=== PATIENT | female | born 1970 | race Hispanic/Latino ===

== ENCOUNTER 2019-05-16 10:56 | Outpatient (CLI) | payer BC ==
--- NOTE | 2019-05-17 11:35 | Mammography Report ---
DIGITAL SCREENING MAMMOGRAM WITH CAD, 05/16/2019 INDICATION: Routine screening mammography. TECHNIQUE: Digital bilateral 2D mammography was obtained in the craniocaudal and mediolateral obliq ue projections. This examination was interpreted with the benefit of Computer-Aided Detection analysi s. COMPARISON: 02/06/2016 FINDINGS: Breast Density: There are scattered areas of fibroglandular density. A right asymmetry on the MLO view requires additional imaging. No architectural distortion or suspici ous calcifications of the right breast. There is no evidence of dominant mass, suspicious calcificati ons or architectural distortion in the left breast. IMPRESSION: Right asymmetry requiring additional imaging. Recommend recall for right lateral and spot magnification MLO views and right breast ultrasound if needed. Follow up recommendation: Special View: Mag Category 0: Incomplete. Needs additional imaging evaluation and/or prior mammograms for comparison. A "normal" or negative report should not discourage follow up or biopsy of a clinically significant f inding. A written summary of these findings will be mailed to the patient. The patient will be entered into a mammography reporting system which will generate a reminder letter for the patient's next appointmen t at the appropriate interval. The [employer] recommends yearly mammograms starting at age 40 and continuing as l monet as a woman is in good health. Breast MRI is recommended for women with an approximate 20-25% or greater lifetime risk of breast cancer, including women with a strong family history of breast or ova jenifer cancer or who have been treated for Hodgkin's disease. Signer Name: Hemal Syed MD Signed: 05/17/2019 11:30 AM Workstation Name: [id number]
== END 2019-05-16 10:57 | disposition home or self-care (01) ==
LOC: SPVWC 10:56
PROVIDERS: ATTEND Internal Medicine
DX: Z12.31 Encounter for screening mammogram for malignant neoplasm of breast (principal); N64.89 Other specified disorders of breast
CPT/HCPCS: 77067